=== PATIENT | female | born 1990 | race Caucasian/White ===

== ENCOUNTER 2016-11-05 08:58 | Emergency (ER) | payer MEDICAID ==
[~2016-11-05] VITALS: Ht 167.6 cm; Wt 90.7 kg
[~2016-11-05 08:58] MED LIST: ACHD5005 PO; ALBU17AE23 IH; AMOX-355 PO; BSP10T PO; BUSP10TA95 PO; CEFP500T4 PO; CEPH500C PO; CYCL10TA9 PO; DCS100C PO; DOCU100C37 PO; FERR-74 PO; FRS325T PO; HYDR-2997 PO; HYDR-3583 PO; HYDR-3720 PO; HYDR-3820 PO; HYDR1TAB PO; IBP600T1 PO; IBP800T PO; IBUP-1773 PO; IBUP-1780 PO; NAPR-243 PO; NAPR550T PO; ONDN4T PO; ORPH100T PO; PENI500T PO; SULF1TAB38 PO
--- NOTE | 2016-11-05 10:56 | ED GU-Female ---
General Chief Complaint: -Female Stated Complaint: VAG BLEEDING/CRAMPING Nursing Triage Note: AMBULATED TO ROOM 04 WITH COMPLAINTS OF DIZZINESS AND HEAVY VAGINAL BLEEDING X3 DAYS. PT STATES SHE IS GOING THRU X3 PADS/TAMPONS AN HOUR. ALSO COMPLAINS OF LOWER ABD CRAMPING. Nursing Sepsis Screen: No Definite Risk Source: patient Exam Limitations: no limitations History of Present Illness Time seen by provider: 10:54 Initial Comments To ER with heavy vaginal bleeding and dizziness for the past 3 days. She reports lower abdominal burning sensation. States that she's been using at times greater than 3 tampons per hour. She states that she was formerly on Depo -Provera with last injection sometime around April or May 2016. She cannot recall when her last normal period was. She's had spotting since April or May. She has not seen her primary care provider for this. Timing/Duration: constant Severity/Quality: moderate Location: suprapubic Radiation: none Activities at Onset: none Prior Genitourinary Problems: none Associated Symptoms: abdominal pain Allergies and Home Medications Allergies Coded Allergies: venlafaxine HCl (Verified Allergy, Unknown, 01/23/14) Home Medications No Active Prescriptions or Reported Meds Constitutional: see HPI EENTM: see HPI Respiratory: no symptoms reported Cardiovascular: no symptoms reported Genitourinary: see HPI Musculoskeletal: see HPI Skin: no symptoms reported Psychiatric/Neurological: No Symptoms Reported Endocrine: No Symptoms Reported Hematologic/Lymphatic: No Symptoms Reported Past Mibxlvu-Zarfsm-Metbgr Hx Patient Social History Alcohol Use: Denies Use Recreational Drug Use: No Smoking Status: Current Everyday Smoker 2nd Hand Smoke Exposure: Yes Recent Foreign Travel: No Contact w/Someone Who Travel: No Recent Infectious Disease Expo: No Recent Hopitalizations: Yes Immunizations Up To Date Tetanus Booster (TDap): Less than 5yrs PED Vaccines UTD: Yes Date of Influenza Vaccine: Oct 23, 2011 Seasonal Allergies Seasonal Allergies: No Surgeries HX Surgeries: Yes (C/S X5, ORAL SX, D&CX2) Surgeries: Section Respiratory Hx Respiratory Disorders: Yes (SMOKERS COUGH) Cardiovascular Hx Cardiac Disorders: No Neurological Hx Neurological Disorders: No Reproductive System Hx : 8 Hx Para: 6 Hx Total # of Abortions (Spona: 2 Hx Reproductive Disorders: No Sexually Transmitted Disease: No Genitourinary Hx Genitourinary Disorders: No Gastrointestinal Hx Gastrointestinal Disorders: No Musculoskeletal Hx Musculoskeletal Disorders: No Endocrine Hx Endocrine Disorders: No HEENT HX ENT Disorders: No Cancer Hx Cancer: No Psychosocial Hx Psychiatric Problems: Yes Behavioral Health Disorders: Bipolar Integumentary HX Skin/Integumentary Disorder: No Blood Transfusions Hx Blood Disorders: No Adverse Reaction to a Blood Tr: No Family Medical History Family Medial History: Alcoholism 19 FATHER Diabetes mellitus G8 BROTHER Drug abuse 19 FATHER 19 MOTHER FH: cancer 19 MOTHER (BREAST AND CERVICAL) Psychosocial problem 19 FATHER G8 BROTHER No Family History of: AIDS Abdominal aortic aneurysm Arthritis Cancer of mouth Cardiovascular disease Cataracts Colon cancer Completed stroke Dementia Hypertension Kidney disease Myocardial infarction Parkinson's disease Prostate cancer Respiratory disorder Seizure disorder Severe allergy Thyroid disease Tuberculosis Physical Exam Vital Signs Vital Sign - Last 12Hours 11/05/16 10:15 Temp 98.0 Pulse 89 Resp 16 B/P 128/93 Pulse Ox 98 Capillary Refill : Greater Than 3 Seconds General Appearance: WD/WN no apparent distress HEENT: PERRL/EOMI normal ENT inspection Neck: non-tender full range of motion Cardiovascular: regular rate, rhythm no murmur Respiratory: normal breath sounds no respiratory distress no accessory muscle use Gastrointestinal: normal bowel sounds non tender soft Pelvic: normal external exam tender w/ cervical motion other (there is clotted blood in the vaginal vault and within the cervical os. No vaginal lesions or other discharge noted. Pelvic exam done with female nursing program manager and ADRIANA Zhou at the bedside) Extremities: normal range of motion non-tender Neurologic/Psychiatric: alert normal mood/affect oriented x 3 Skin: normal color warm/dry Progress/Results/Core Measures Results/Orders Lab Results Laboratory Tests Test 11/05/16 11:05 11/05/16 11:23 11/05/16 11:27 Range/Units Basophils # (Auto) 0.0 0.0-0.1 10^3/uL Basophils (%) (Auto) 0 0-10 % Eosinophils # (Auto) 0.2 0.0-0.3 10^3/uL Eosinophils (%) (Auto) 2 0-10 % Hematocrit 42 35-52 % Hemoglobin 14.2 11.5-16.0 G/DL INR Comment 0.9 0.8-1.4 Lymphocytes # (Auto) 1.7 1.0-4.0 X 10^3 Lymphocytes (%) (Auto) 18 12-44 % Mean Corpuscular Hemoglobin 28 25-34 PG Mean Corpuscular Hemoglobin Concent 34 32-36 G/DL Mean Corpuscular Volume 83 80-99 FL Mean Platelet Volume 10.7 H 7.4-10.4 FL Monocytes # (Auto) 1.0 0.0-1.0 X 10^3 Monocytes (%) (Auto) 11 0-12 % Neutrophils # (Auto) 6.3 1.8-7.8 X 10^3 Neutrophils (%) (Auto) 69 42-75 % Platelet Count 296 130-400 10^3/uL Prothrombin Time 11.5 L 12.2-14.7 SEC Red Blood Count 5.01 4.35-5.85 10^6/uL Red Cell Distribution Width 14.0 10.0-14.5 % White Blood Count 9.1 4.3-11.0 10^3/uL Micro Results Microbiology 11/05/16 Genital Culture, Resulted Pending 11/05/16 Wet Prep - Final, Resulted My Orders Orders-BULMARO JACQUES APRN Cbc With Automated Diff (11/05/16 10:50) Protime With Inr (11/05/16 10:50) Ua Culture If Indicated (11/05/16 10:50) Urine Bedside (11/05/16 10:50) Saline Lock/Iv-Start (11/05/16 10:50) Ketorolac Injection (Toradol Injection) (11/05/16 11:00) Wet Prep (11/05/16 10:50) Neisseria Gonorrhea Dna (11/05/16 10:50) Chlamydia Dna (11/05/16 10:50) Genital Culture (11/05/16 10:50) Ibuprofen Tablet (Motrin Tablet) (11/05/16 11:15) Vital Signs/I&O Vital Sign - Last 12Hours 11/05/16 10:15 Temp 98.0 Pulse 89 Resp 16 B/P 128/93 Pulse Ox 98 Blood Pressure Mean: 105 Departure Impression Impression: Primary Impression: Abnormal vaginal bleeding Disposition: 01 HOME, SELF-CARE Condition: Stable Departure-Patient Inst. Decision time for Depature: 11:14 Referrals: DOUGLAS MAI MD (PCP/Family) Primary Care Physician Add. Discharge Instructions: 1. Call your regular doctor at [facility] for further evaluation 2. Use Motrin 800 mg every 8 hours for the next 3 days. This will reduce blood -flow to the uterus and will reduce her bleeding. All discharge instructions reviewed with patient and/or family. Voiced understanding. Scripts No Active Prescriptions or Reported Meds Copy Copies To 1: DOUGLAS MAI MD, PETER J APRN Nov 05, 2016 10:56
[2016-11-05] MEDS ORDERED: KETOROLAC 30 MG/ML VIAL IVP ONE (11:00)
[2016-11-05 11:11] LABS: BASOPHILS % (AUTO) 0 % (0-10); EOSINOPHILS # (AUTO) 0.2 10^3/uL (0.0-0.3); EOSINOPHILS % (AUTO) 2 % (0-10); LYMPHOCYTES # (AUTO) 1.7 X 10^3 (1.0-4.0); LYMPHOCYTES % (AUTO) 18 % (12-44); MEAN CORPUSCULAR HEMOGLOBIN 28 PG (25-34); MEAN CORPUSCULAR HGB CONC 34 G/DL (32-36); MEAN CORPUSCULAR VOLUME 83 FL (80-99); MEAN PLATELET VOLUME 10.7 FL (7.4-10.4); MONOCYTES % (AUTO) 11 % (0-12); NEUTROPHILS # (AUTO) 6.3 X 10^3 (1.8-7.8); NEUTROPHILS % (AUTO) 69 % (42-75); PLATELET COUNT 296 10^3/uL (130-400); RED BLOOD COUNT 5.01 10^6/uL (4.35-5.85); WHITE BLOOD COUNT 9.1 10^3/uL (4.3-11.0)
[2016-11-05] MEDS ORDERED: IBUPROFEN 800 MG (MOTRIN) TAB PO ONE (11:15)
[2016-11-05 11:23] LABS: INR 0.9 (0.8-1.4); PROTHROMBIN TIME PATIENT 11.5 SEC (12.2-14.7)
[2016-11-05 11:37] LABS: BILIRUBIN,URINE NEGATIVE (NEGATIVE); KETONES,URINE NEGATIVE (NEGATIVE); LEUKOCYTE ESTERASE ,URINE 1+ (NEGATIVE); NITRITE,URINE NEGATIVE (NEGATIVE); PH,URINE 7 (5-9); PROTEIN,URINE 1+ (NEGATIVE); UROBILINOGEN,URINE NORMAL (NORMAL)
[2016-11-05 11:46] VITALS: BP 128/93
[2016-11-05 11:48] LABS: WBC,URINE RARE /HPF
== END 2016-11-05 11:46 | disposition home or self-care (01) ==
LOC: EDUNIT# 08:58 → ER 09:02
DX: N93.9 Abnormal uterine and vaginal bleeding, unspecified (principal); R10.30 Lower abdominal pain, unspecified; F17.210 Nicotine dependence, cigarettes, uncomplicated
CPT/HCPCS: 36415; 81000; 84703; 85025; 85610; 87070; 87210; 87491; 87591

== ENCOUNTER 2020-10-13 16:16 | Emergency (ER) | payer MEDICAID ==
[~2020-10-13] VITALS: Ht 167 cm; Wt 113.0 kg
[2020-10-13] MEDS ORDERED: HYDROcodone/APAP 5 MG/325 MG (LORTAB) TAB ONE (16:41)
[2020-10-13] MEDS ORDERED: ACHD5005 PO (16:59)
[2020-10-13] MEDS ORDERED: HYDROcodone/APAP 5 MG/325 MG (LORTAB) TAB PO ONE (17:00)
--- NOTE | 2020-10-13 17:00 | ED Integumentary General ---
General Chief Complaint: Skin/Wound Problems Stated Complaint: L BREAST ABSCESS Source: patient Exam Limitations: no limitations History of Present Illness Date Seen by Provider: Oct 13, 2020 Time Seen by Provider: 16:54 Initial Comments To ER from [facility] with reports of a left breast abscess identified on outpatient breast ultrasound. She reports symptoms for 4 days. She quit breast-feeding 2 months ago. No systemic symptoms such as fevers or chills nausea or vomiting. Timing/Duration: constant Severity: moderate Possible Cause: no cause identified Associated Symptoms: denies symptoms Allergies and Home Medications Allergies Coded Allergies: venlafaxine HCl (Verified Allergy, Unknown, 01/23/14) Home Medications No Active Prescriptions or Reported Meds Patient Home Medication List Home Medication List Reviewed: Yes Review of Systems Review of Systems Constitutional: see HPI; No chills, No fever EENTM: see HPI Respiratory: no symptoms reported Cardiovascular: no symptoms reported Genitourinary: no symptoms reported Musculoskeletal: no symptoms reported Skin: see HPI Psychiatric/Neurological: No Symptoms Reported Endocrine: No Symptoms Reported Hematologic/Lymphatic: No Symptoms Reported Past Xbdazri-Myozyx-Lescwg Hx Patient Social History 2nd Hand Smoke Exposure: Yes Recent Hopitalizations: Yes Immunizations Up To Date Tetanus Booster (TDap): Less than 5yrs PED Vaccines UTD: Yes Date of Influenza Vaccine: Oct 23, 2011 Seasonal Allergies Seasonal Allergies: No Past Medical History Section Reproductive Disorders: No Sexually Transmitted Disease: No Bipolar Adverse Reaction/Blood Tranf: No Family Medical History Alcoholism 19 FATHER Diabetes mellitus G8 BROTHER Drug abuse 19 FATHER 19 MOTHER FH: cancer 19 MOTHER (BREAST AND CERVICAL) Psychosocial problem 19 FATHER G8 BROTHER No Family History of: AIDS Abdominal aortic aneurysm Arthritis Cancer of mouth Cardiovascular disease Cataracts Colon cancer Completed stroke Dementia Hypertension Kidney disease Myocardial infarction Parkinson's disease Prostate cancer Respiratory disorder Seizure disorder Severe allergy Thyroid disease Tuberculosis Physical Exam Vital Signs Capillary Refill : General Appearance: WD/WN, no apparent distress HEENT: PERRL/EOMI, normal ENT inspection Neck: non-tender, full range of motion Respiratory: no respiratory distress, no accessory muscle use Neurologic/Psychiatric: alert, normal mood/affect, oriented x 3 Skin: normal color, warm/dry Skin Problem Character: abscess, other (There is a large left breast abscess at the medial aspect of the left breast.) Procedures/Interventions I&D : Blade Size: 11 Progress Overlying skin anesthetized with 1% lidocaine without epinephrine. Incision made with an 11 blade scalpel. Large amount of purulent material expressed. Cavity was then irrigated with Betadine/saline solution and packed with quarter inch iodoform gauze. Progress/Results/Core Measures Results/Orders My Orders Orders - BULMARO JACQUES APRN Hydrocodone/Apap 5/325 Tablet (Lortab 5 (10/13/20 16:41) Hydrocodone/Apap 5/325 Tablet (Lortab 5 (10/13/20 17:00) Wound Culture (10/13/20 16:48) Departure Communication (Admissions) She states that she has a prescription for Bactrim already at [facility]. She received an injection of Rocephin at [facility]. Impression Primary Impression: Breast abscess Disposition: HOME, SELF-CARE Condition: Stable Departure-Patient Inst. Decision time for Depature: 16:58 Referrals: DOUGLAS MAI MD (PCP/Family) Primary Care Physician Patient Instructions: Abscess Incision and Drainage (DC) Add. Discharge Instructions: 1. Remove the packing by simply pulling on it Friday morning. Change the gauze as needed. Return to ER for any fevers chills or systemic symptoms. Take the antibiotics that are at [facility]. All discharge instructions reviewed with patient and/or family. Voiced un derstanding. Scripts Hydrocodone/Acetaminophen (Hydrocodone-Acetamin 5-325 mg) 1 Each Tablet 1 TAB PO Q4H PRN for PAIN-MODERATE (5-7), #10 TAB Prov: BULMARO JACQUES APRN 10/13/20 BULMARO JACQUES APRN Oct 13, 2020 16:59
[2020-10-13 17:10] VITALS: BP 141/98
== END 2020-10-13 17:10 | disposition home or self-care (01) ==
LOC: EDUNIT# 16:16 → ER 16:18
DX: N61.1 Abscess of the breast and nipple (principal); Z88.8 Allergy status to other drugs, medicaments and biological substances; Z80.3 Family history of malignant neoplasm of breast; Z83.3 Family history of diabetes mellitus; Z80.49 Family history of malignant neoplasm of other genital organs; Z77.22 Contact with and (suspected) exposure to environmental tobacco smoke (acute) (chronic)
CPT/HCPCS: 87070; 87205; 99283

== ENCOUNTER → 2020-10-13 | Outpatient (CLI) | payer MEDICAID ==
[~2020-10-13] MED LIST changes: +ACHYD1T PO; -FERR-74 PO; +FERR325T18 PO; -HYDR-3820 PO
--- NOTE | 2020-10-13 16:12 | Diagnostic Imaging Report ---
INDICATION: Redness and swelling to the left breast. Sonographic interrogation of the area of redness and swelling demonstrates a large complex mass at the 9:00 location. This contains internal septations. No internal vascularity is seen. There is vascularity along the margins. This measures 5.4 x 2.3 cm. Findings are most consistent with a soft tissue abscess. No other abnormalities are seen. IMPRESSION: BI-RADS Category 3 Complex fluid collection at the 9:00 location of the left breast suggestive of an abscess. Follow-up ultrasound after course of therapy is recommended to confirm complete resolution. ACR BI-RADS Category 3: Probably benign findings. Result letter will be mailed to the patient. Note: At least 10% of breast cancer is not imaged by mammography. Dictated by: Dictated on workstation # [id number]
== END ==
LOC: RAD 14:16
PROVIDERS: ATTEND Nurse Practitioner
DX: N61.0 Mastitis without abscess (principal)
CPT/HCPCS: 76642